=== PATIENT | male | born 1975 | race Two or more races ===

== ENCOUNTER 2025-01-10 11:13 | Outpatient (AMB) | payer OTHER, SELFPAY ==
--- NOTE | 2025-01-10 11:28 | MHC.PC.OV ---
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 He has a significant past medical history of microscopic hematuria. Uro: States that a few years ago he had a workup with urology for microscopic hematuria General: He has been getting some fatigue. His complains of his snoring and has noticed sometimes it looks like he stops breathing. He thinks it is fatigue may just be lifestyle induced. It is usually by the end of the day or mid afternoon. Sometimes he does wake up not feeling well rested. Denies any swollen lymph nodes, weight loss or night sweats Derm: Has noted a spot in his right upper arm that started a few weeks ago. It is flat and slightly hyperpigmented. He states it has never been there before. No family history of skin cancer Colonscopy: had a neg cologuard 2 years ago. 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 1. Little interest or pleasure in doing things: not at all 2. Feeling down, depressed, or hopeless: not at all 3. Trouble falling or staying asleep, or sleeping too much: not at all 4. Feeling tired or having little energy: several days 5. Poor appetite or overeating: not at all 6. Feeling bad about yourself - or that you are a failure or have let yourself or your family down: not at all 7. Trouble concentrating on things, such as reading the newspaper or watching television: not at all 8. Moving or speaking so slowly that other people could have noticed. Or the opposite - being so fidgety or restless that you have been moving around a lot more than usual: not at all 9. Thoughts that you would be better off or of hurting yourself in some way: not at all Total score: 1 Depression Screening Interpretation: Negative Depression Screening Done: Yes 92762 - PHQ-9 Billing: Yes Source: Developed by Drs. Terrell Collado, Rachel King, Prakash Tadeo and colleagues, with an educational eugene from [employer]. Thrive Questionnaire Date Thrive assessed: 01/10/25 I am a: Patient What is your living situation today?: I have a steady place to live Within the past 12 months, did the food you bought not last and you didn't have the money to get more?: Never true Within the past 12 months, did you worry whether your food would run out before you got money to buy more?: Never true Do you have trouble paying for medicines?: No Do you have trouble getting transportation to medical appointments?: No Do you have trouble paying your heating and electricity bill?: No Do you have trouble taking care of your child, family member or friend?: No Do you have trouble with day-to-day activities such as bathing, preparing meals, shopping, managing finances, etc.?: No Are you currently unemployed and looking for a job?: No Are you interested in more education?: No Please select the resources that you would like help with: None Currently or been in a relationship where the following occur: No concerns reported THRIVE Score: 0 AUDIT C Alcohol Use Questionnaire (AUDIT-C) 1. How often do you have a drink containing alcohol?: 2-4 times a month 2. How many drinks containing alcohol do you have on a typical day when you are drinking?: 5 or 6 3. How often do you have six or more drinks on one occasion?: Less than monthly Total Score: 5 GLENN-7 AMB Questionnaire GLENN-7 Date GLENN - 7 assessed: 01/10/25 Feeling nervous, anxious, or on edge: 0 = Not at all Not being able to stop or control worryin = Not at all Worrying too much about different things: 0 = Not at all Trouble relaxin = Not at all Being so restless that it is hard to sit still: 0 = Not at all Becoming easily annoyed or irritable: 0 = Not at all Feeling afraid as if something awful might happen: 0 = Not at all Total GLENN-7 score (0-4 normal; 5-9 mild; 10-14 moderate; 15-21 severe): 0 Source: Developed by Drs. Terrell Collado, Rachel King, Prakash Tadeo and colleagues, with an educational eugene from [employer]. GLENN-7 Assessment Billing GLENN-7 Assessment Tool: GLENN-7 Assessment 90398 Physical exam (Primary Care) Vital Signs: Last Vital Signs Temp 98.3 F 01/10/25 11:31 Pulse 68 01/10/25 11:31 Resp 14 01/10/25 11:31 BP 126/76 01/10/25 11:31 Pulse Ox 96 01/10/25 11:31 Oxygen Delivery Method Room Air 01/10/25 11:31 BMI result Body Mass Index 32.4 Tobacco/Smoking Status: Tobacco use Status Tobacco use date assessed 01/10/25 01/10/25 11:37 Patient Tobacco Use Status Never used Tobacco 01/10/25 11:37 e-Cigarette/Vaping Use Never Used 01/10/25 11:37 PHQ-9: PHQ-9 Score PHQ-9: Total score 1 01/10/25 11:37 Depression Screening Interpretation: Negative Thrive Assessment: Date of Thrive Assessment Date Thrive assessed 01/10/25 01/10/25 11:37 Currently or been in a relationship where the following occur: No concerns reported Coding Level of Care Code New Pt Prev Care 40-64y(87851) Diagnoses Routine general medical examination at a health care facility Z00.00 Skin lesion of right arm L98.9 Fatigue R53.83 Additional Codes GLENN-7 Assessment Billing - GLENN-7 Assessment Tool: GLENN-7 Assessment 43227 ([id number]) PHQ-9 - 57848 - PHQ-9 Billing: Yes ([id number]) Assessment & Plan Assessment & Plan (1) Routine general medical examination at a health care facility: Code(s): Z00.00 - Encounter for general adult medical examination without abnormal findings Plan: Health maintenance reviewed. Labs ordered. Referral to GI for colonoscopy (2) Skin lesion of right arm: Code(s): L98.9 - Disorder of the skin and subcutaneous tissue, unspecified Category: Medical Plan: Referral to dermatology (3) Fatigue: Code(s): R53.83 - Other fatigue Category: Medical Plan: Labs and sleep study ordered advised to follow up if anything worsens or changes. Orders: Orders RT home sleep study Today R06.81 - Apnea, not elsewhere classified Complete Blood Count Auto Diff Today L98.9 - Disorder of the skin and subcutaneous tissue, unspecified, R31.9 - Hematuria, unspecified, R53.83 - Other fatigue, Z00.00 - Encounter for general adult medical examination without abnormal findings IRON PROFILE Today L98.9 - Disorder of the skin and subcutaneous tissue, unspecified, R31.9 - Hematuria, unspecified, R53.83 - Other fatigue, Z00.00 - Encounter for general adult medical examination without abnormal findings Hemoglobin A1c Today L98.9 - Disorder of the skin and subcutaneous tissue, unspecified, R31.9 - Hematuria, unspecified, R53.83 - Other fatigue, R73.01 - Impaired fasting glucose, Z00.00 - Encounter for general adult medical examination without abnormal findings Lipid Panel Today L98.9 - Disorder of the skin and subcutaneous tissue, unspecified, R31.9 - Hematuria, unspecified, R53.83 - Other fatigue, Z00.00 - Encounter for general adult medical examination without abnormal findings Magnesium Today L98.9 - Disorder of the skin and subcutaneous tissue, unspecified, R31.9 - Hematuria, unspecified, R53.83 - Other fatigue, Z00.00 - Encounter for general adult medical examination without abnormal findings TSH reflex Free T4 Today L98.9 - Disorder of the skin and subcutaneous tissue, unspecified, R31.9 - Hematuria, unspecified, R53.83 - Other fatigue, Z00.00 - Encounter for general adult medical examination without abnormal findings UA CC w/rflx Micro + Cult Today L98.9 - Disorder of the skin and subcutaneous tissue, unspecified, R30.0 - Dysuria, R31.9 - Hematuria, unspecified, R53.83 - Other fatigue, Z00.00 - Encounter for general adult medical examination without abnormal findings Prostate Specific Antigen Scr Today L98.9 - Disorder of the skin and subcutaneous tissue, unspecified, R31.9 - Hematuria, unspecified, R53.83 - Other fatigue, Z00.00 - Encounter for general adult medical examination without abnormal findings, Z01.89 - Encounter for other specified special examinations Comprehensive [place]. Panel Fast Today L98.9 - Disorder of the skin and subcutaneous tissue, unspecified, R31.9 - Hematuria, unspecified, R53.83 - Other fatigue, Z00.00 - Encounter for general adult medical examination without abnormal findings Ferritin Today L98.9 - Disorder of the skin and subcutaneous tissue, unspecified, R31.9 - Hematuria, unspecified, R53.83 - Other fatigue, Z00.00 - Encounter for general adult medical examination without abnormal findings Vitamin B12 and Folate Today L98.9 - Disorder of the skin and subcutaneous tissue, unspecified, R31.9 - Hematuria, unspecified, R53.83 - Other fatigue, Z00.00 - Encounter for general adult medical examination without abnormal findings Referrals Gastroenterology Referral Z12.11 - Encounter for screening for malignant neoplasm of colon Dermatology Referral L98.9 - Disorder of the skin and subcutaneous tissue, unspecified, Z12.83 - Encounter for screening for malignant neoplasm of skin
[2025-01-10 11:31] VITALS: BP 126/76; PULSE 68; RESP 14; TEMP 36.8; O2SAT 96; BMI 32.4
== END 2025-01-10 12:00 | disposition home or self-care (01) ==
LOC: HO.HMCFM 11:14
PROVIDERS: PCP Physician Assistant; Visit Provider Physician Assistant
DX: Z00.00 Encounter for general adult medical examination without abnormal findings (principal); L98.9 Disorder of the skin and subcutaneous tissue, unspecified; R53.83 Other fatigue

== ENCOUNTER → 2025-01-10 11:13 | Outpatient (BNVA) | payer OTHER, SELFPAY | PROVIDERS: PCP Physician Assistant; Visit Provider Physician Assistant | DX: Z00.00 Encounter for general adult medical examination without abnormal findings (principal); L98.9 Disorder of the skin and subcutaneous tissue, unspecified; R53.83 Other fatigue; R06.81 Apnea, not elsewhere classified | CPT/HCPCS: 96127 ==

== ENCOUNTER 2025-01-12 09:05 | Outpatient (REF) | payer OTHER, SELFPAY ==
[2025-01-12 09:18] LABS: MANUAL DIFF FLAG NO
[2025-01-12 10:19] LABS: Hematocrit 46.0 % (42.0-52.0); Hemoglobin 16.5 g/dl (14.0-18.0); Imm Gran Abs Auto 0.01 X10*3/uL (0.00-0.03); Imm Gran Pct Auto 0.2 % (0.0-0.4); Lymphocytes Absolute Auto 1.4 X10*3/uL (1.2-4.9); Mean Corpuscular HGB Conc 35.9 g/dl (31.0-36.0); Mean Corpuscular Hemoglobin 33.0 pg (27.0-33.0); Mean Corpuscular Volume 92.0 fL (80.0-98.0); NRBC Abs Auto 0.000 X10*3/uL (0.0-0.012); NRBC Pct Auto 0.0 /100WBC (0.0-0.2); Platelet Count 239 X10*3/uL (160-400); Red Blood Count 5.00 X10*6/uL (4.60-5.80); White Blood Count 4.6 X10*3/uL (4.8-10.8)
[2025-01-12 10:37] LABS: Hemoglobin A1C 159.3311 umol/L; Total Hemoglobin (HGBA1C) 4273.4287 umol/L
[2025-01-12 10:43] LABS: Appearance Urine Clear; Glucose Urine UA Negative (Negative); PH 7.0 (5.0-9.0); Specific Gravity - Urine 1.020 (1.005-1.025)
[2025-01-12 11:17] LABS: Alanine Aminotransferase 29 U/L (0-40); Albumin Level 4.5 g/dL (3.5-5.0); Alkaline Phosphatase 63 U/L (39-117); Anion Gap 10 (12-20); Aspartate Amino Transferase 27 U/L (5-37); Blood Urea Nitrogen 13 mg/dL (9-16); Calcium 9.3 mg/dL (8.4-10.2); Carbon Dioxide 29 mmol/L (22-29); Chloride 105 mmol/L (96-108); Cholesterol 177 mg/dL (<200); Estimated Glomerular Filt Rate > 60; HDL Cholesterol 53 mg/dL (>40); Iron 138 mcg/dL (45-160); Magnesium 1.9 mg/dL (1.6-2.6); Percent Iron Saturation 48 % (15-50); Potassium 4.2 mmol/L (3.3-5.1); Sodium 140 mmol/L (135-145); Total Iron Binding Capacity 285 mcg/dL (228-428); Total Protein 7.2 g/dL (6.5-8.0); Triglycerides 88 mg/dL (<150); Unsaturated Iron Binding 147 ug/dL
[2025-01-12 11:36] LABS: Ferritin 308 ng/mL (20-250)
[2025-01-12 11:45] LABS: Folate 11.9 ng/mL (> or = 4.0); Vitamin B12 438 pg/mL (200-900)
== END 2025-01-12 09:06 | disposition home or self-care (01) ==
LOC: HO.LAB 09:05
PROVIDERS: PCP Physician Assistant; Visit Provider Physician Assistant
DX: Z01.89 Encounter for other specified special examinations (principal); Z12.5 Encounter for screening for malignant neoplasm of prostate; Z13.6 Encounter for screening for cardiovascular disorders; R53.83 Other fatigue; R73.01 Impaired fasting glucose; R30.0 Dysuria; L98.9 Disorder of the skin and subcutaneous tissue, unspecified; R31.9 Hematuria, unspecified
CPT/HCPCS: 36415; 80053; 80061; 81003; 82607; 82728; 82746; 83036; 83540; 83735; 84153; 84443; 85025